=== PATIENT | female | born 1965 | race Caucasian/White ===

== ENCOUNTER 2020-12-16 18:02 | Emergency (ER) | payer OTHER ==
[~2020-12-16] VITALS: Ht 160 cm; Wt 54.0 kg
[2020-12-16] MEDS ORDERED: HYDRALAZINE HCL50 MG (18:36)
[2020-12-16] MEDS ORDERED: TOPROL XL25 M1 (18:36)
[2020-12-16] MEDS ORDERED: AVAPRO75 MG (18:36)
[2020-12-16] MEDS ORDERED: LEVOTHYROXINE50 MC1 (18:37)
[2020-12-16] MEDS ORDERED: LASIX20 MG (18:37)
[2020-12-16] MEDS ORDERED: FOLIC ACID20 MG (18:37)
[2020-12-16] MEDS ORDERED: NIFEDIPINE (18:37)
[2020-12-16] MEDS ORDERED: ATORVASTATIN CA10 MG (18:37)
== END 2020-12-16 19:03 | disposition home or self-care (01) ==
LOC: ER 18:02
DX: S90.511A Abrasion, right ankle, initial encounter (principal); W55.03XA Scratched by cat, initial encounter; Y93.89 Activity, other specified; Y92.89 Other specified places as the place of occurrence of the external cause; Y99.8 Other external cause status

== ENCOUNTER 2020-12-22 17:04 | Emergency (ER) | payer OTHER ==
[~2020-12-22] VITALS: Ht 157.5 cm; Wt 53.5 kg
[~2020-12-22 17:04] MED LIST: ATORVASTATIN CA10 MG; AVAPRO75 MG; FOLIC ACID20 MG; HYDRALAZINE HCL50 MG; LASIX20 MG; LEVOTHYROXINE50 MC1; NIFEDIPINE; TOPROL XL25 M1
== END 2020-12-23 | disposition left against medical advice (07) ==
LOC: ER 17:04
DX: L03.115 Cellulitis of right lower limb (principal); W55.03XA Scratched by cat, initial encounter; Y92.89 Other specified places as the place of occurrence of the external cause; Z53.29 Procedure and treatment not carried out because of patient's decision for other reasons